=== PATIENT | male | born 1980 | race African-American/Black ===

== ENCOUNTER 2016-05-04 17:28 | Emergency (ER) | payer OTHER ==
[~2016-05-04] VITALS: Ht 177.8 cm; Wt 87.0 kg
[2016-05-04 17:47] VITALS: BP 130/94
== END 2016-05-04 23:30 | disposition left against medical advice (07) ==
LOC: ER 23:04
DX: Z53.21 Procedure and treatment not carried out due to patient leaving prior to being seen by health care provider (principal)